=== PATIENT | female | born 1980 | race Caucasian/White ===

== ENCOUNTER 2016-06-14 07:46 | Inpatient (IN) | payer OTHER ==
[~2016-06-14 07:46] MED LIST: Lidocaine 1%/Sod Bicarbonate in NS 8.4% 1 ML Syringe IV PRN; Midazolam 1 MG/ML 2 ML SDV ONE; Propofol 200 MG/20 ML SDV ONE; Rocuronium 50 MG/5 ML Vial ONE; Sodium Chloride 0.9% 10 ML Syringe FLUSH PRN; ceFAZolin 1 GM Vial ONE; fentaNYL 250 MCG/5 ML SDV ONE
[2016-06-14] MEDS: Lactated Ringers 1,000 ML IV SCH ×2 (08:15→15:05)
--- NOTE | 2016-06-14 09:15 | PCM.PREANE ---
Preanesthetic Assessment - Anesthesia/Transfusion/Family Hx Anesthesia History: No Prior Anesthesia Family History of Anesthesia Reaction: No - Review of Systems General: No Symptoms Pulmonary: No Symptoms Cardiovascular: No Symptoms Gastrointestinal: No symptoms Neurological: No Symptoms Other: Reports: None - Physical Assessment NPO Status Date: 06/13/16 NPO Status Time: 19:00 O2 Sat by Pulse Oximetry: 98 Respiratory Rate: 16 Vital Signs: Last Vital Signs Temp 36.8 C 06/14/16 07:55 Pulse 91 06/14/16 07:55 Resp 16 06/14/16 07:55 BP 125/79 06/14/16 07:55 Pulse Ox 98 06/14/16 07:55 Height: 1.64 m Weight: 81.919 kg ASA Class: 2 Mental Status: Alert & Oriented x3 Airway Class: Mallampati = 1 Dentition: Reports: Normal Dentition Thyro-Mental Finger Breadths: 3 Mouth Opening Finger Breadths: 3 ROM/Head Extension: Full Lungs: Clear to auscultation, Normal respiratory effort Cardiovascular: Regular Rate, Regular Rhythm - Lab Values: Laboratory Last Values WBC 5.68 K/mm3 (3.98-10.04) 06/14/16 08:14 RBC 4.89 M/mm3 (3.98-5.22) 06/14/16 08:14 Hgb 13.8 gm/L (11.2-15.7) 06/14/16 08:14 Hct 40.0 % (34.1-44.9) 06/14/16 08:14 MCV 81.8 fl (79.4-94.8) 06/14/16 08:14 MCH 28.2 pg (25.6-32.2) 06/14/16 08:14 MCHC 34.5 g/dl (32.2-35.5) 06/14/16 08:14 RDW Std Deviation 38.6 fL (36.4-46.3) 06/14/16 08:14 Plt Count 265 K/mm3 (182-369) 06/14/16 08:14 MPV 9.6 fl (9.4-12.3) 06/14/16 08:14 Neut % (Auto) 59.2 % (34.0-71.1) 06/14/16 08:14 Lymph % (Auto) 31.9 % (19.3-51.7) 06/14/16 08:14 [facility] % (Auto) 6.3 % (4.7-12.5) 06/14/16 08:14 Eos % (Auto) 1.9 (0.7-5.8) 06/14/16 08:14 Baso % (Auto) 0.5 % (0.1-1.2) 06/14/16 08:14 Neut # 3.36 K/mm3 (1.56-6.13) 06/14/16 08:14 Lymph # 1.81 K/mm3 (1.18-3.74) 06/14/16 08:14 [facility] # 0.36 K/mm3 (0.24-0.36) 06/14/16 08:14 Eos # 0.11 K/mm3 (0.04-0.36) 06/14/16 08:14 Baso # 0.03 K/mm3 (0.01-0.08) 06/14/16 08:14 Sodium 139 mEq/L (136-145) 06/14/16 08:14 Potassium 4.0 mEq/L (3.5-5.1) 06/14/16 08:14 Chloride 104 mEq/L (98-107) 06/14/16 08:14 Carbon Dioxide 24 mEq/L (21-32) 06/14/16 08:14 Anion Gap 15.0 (5-15) 06/14/16 08:14 BUN 15 mg/dL (7-18) 06/14/16 08:14 Creatinine 0.9 mg/dL (0.55-1.02) 06/14/16 08:14 Est Cr Clr Drug Dosing 76.19 mL/min 06/14/16 08:14 Estimated GFR (MDRD) > 60 mL/min (>60) 06/14/16 08:14 BUN/Creatinine Ratio 16.7 (14-18) 06/14/16 08:14 Glucose 99 mg/dL (74-106) 06/14/16 08:14 Calcium 9.3 mg/dL (8.5-10.1) 06/14/16 08:14 Urine HCG, Qual Negative (NEGATIVE) 06/14/16 08:37 - Allergies Allergies/Adverse Reactions: Allergies Allergy/AdvReac Type Severity Reaction Status Date / Time No Known Allergies Allergy Verified 06/14/16 08:25 - Anesthesia Plan Pre-Op Medication Ordered: None - Acknowledgements Anesthesia Type Planned: General Anesthesia Pt an Appropriate Candidate for the Planned Anesthesia: Yes Alternatives and Risks of Anesthesia Discussed w Pt/Guardian: Yes Pt/Guardian Understands and Agrees with Anesthesia Plan: Yes PreAnesthesia Questionnaire HEENT History: Reports: None Cardiovascular History: Reports: None Respiratory History: Reports: None Gastrointestinal History: Reports: None, Other (see below) Other Gastrointestinal History: umbilical hernia Genitourinary History: Reports: None 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: Reports: , Other (see below) Other OB/BYN History: heavy menstrual bleeding, dysmenorrhea Musculoskeletal History: Reports: None Neurological History: Reports: None Psychiatric History: Reports: None (pt has hx of anxiety, panic attacks) Endocrine/Metabolic History: Reports: None Hematologic History: Reports: None Immunologic History: Reports: None Oncologic (Cancer) History: Reports: None Dermatologic History: Reports: None - Infectious Disease History Infectious Disease History: Reports: None - Past Surgical History Head Surgeries/Procedures: Reports: None HEENT Surgical History: Reports: Adenoidectomy, LASIK, Tonsillectomy Cardiovascular Surgical History: Reports: None Respiratory Surgical History: Reports: None GI Surgical History: Reports: Cholecystectomy Female Surgical History: Reports: section, Tubal ligation Male Surgical History: Reports: None Endocrine Surgical History: Reports: None Neurological Surgical History: Reports: None Musculoskeletal Surgical History: Reports: None, Other (see below) Other Musculoskeletal Surgeries/Procedures:: ankle fracture with surgery x 2 Oncologic Surgical History: Reports: None Dermatological Surgical History: Reports: None (no previous anesthetic comp) - SUBSTANCE USE Smoking Status *Q: Current Every Day Smoker (1/2 ppd x 15 years) - HOME MEDS Home Medications: Home Meds Chrom Bee/Brindal Gracia [Garcinia Cambogia Tablet] 2 tab PO DAILY 06/13/16 [ History] FLUoxetine [PROzac] 40 mg PO DAILY 06/13/16 [History] Fish Oil/[place]-3 Fatty Acids [Fish Oil 1,000 MG] 1,000 mg PO DAILY 06/13/16 [ History] Fluticasone Propionate [Flonase] 1 spray NASBOTH BID PRN 06/13/16 [History] Zolpidem [Ambien] 10 mg PO BEDTIME PRN 06/13/16 [History] - CURRENT (IN HOUSE) MEDS Current Meds: Current Medications Lactated Ringer's (Ringers, Lactated) 1,000 mls @ 125 mls/hr IV ASDIRECTED PAOLO Stop: 06/14/16 23:00 Last Admin: 06/14/16 08:15 Dose: 125 mls/hr Lidocaine/Sodium Bicarbonate (Buffered Lidocaine 1% In Ns 8.4%) 0.25 ml IV ONETIME PRN PRN Reason: Prior to IV Start Stop: 06/14/16 23:00 Sodium Chloride (Saline Flush) 10 ml FLUSH ASDIRECTED PRN PRN Reason: Keep Vein Open Stop: 06/14/16 23:59 Discontinued Medications Cefazolin Sodium (Ancef) Confirm Administered Dose 1 gm .ROUTE .STK-MED ONE Stop: 06/14/16 07:20 Cefazolin Sodium (Ancef) Confirm Administered Dose 1 gm .ROUTE .STK-MED ONE Stop: 06/14/16 07:20 Fentanyl (Sublimaze) Confirm Administered Dose 250 mcg .ROUTE .STK-MED ONE Stop: 06/14/16 07:17 Lidocaine/Epinephrine (Xylocaine 1% With Epinephrine 1:100,000) Confirm Administered Dose 20 ml .ROUTE .STK-MED ONE Stop: 06/14/16 08:14 Midazolam HCl (Versed 1 Mg/Ml) Confirm Administered Dose 2 mg .ROUTE .STK-MED ONE Stop: 06/14/16 07:18 Propofol (Diprivan 20 Ml) Confirm Administered Dose 200 mg .ROUTE .STK-MED ONE Stop: 06/14/16 07:15 Rocuronium [place] (Zemuron) Confirm Administered Dose 50 mg .ROUTE .STK-MED ONE Stop: 06/14/16 07:19 Sodium Chloride (Normal Saline) Confirm Administered Dose 50 ml .ROUTE .STK-MED ONE Stop: 06/14/16 08:14 Preanesthetic Assessment - PHYSICAL ASSESSMENT O2 Sat by Pulse Oximetry: 98 RR: 16 Vital Signs: Last Vital Signs Temp 36.8 C 06/14/16 07:55 Pulse 91 06/14/16 07:55 Resp 16 06/14/16 07:55 BP 125/79 06/14/16 07:55 Pulse Ox 98 06/14/16 07:55 Height: 1.64 m Weight: 81.919 kg NPO Status Date: 06/13/16 NPO Status Time: 19:00 - LAB Values: Laboratory Last Values WBC 5.68 K/mm3 (3.98-10.04) 06/14/16 08:14 RBC 4.89 M/mm3 (3.98-5.22) 06/14/16 08:14 Hgb 13.8 gm/L (11.2-15.7) 06/14/16 08:14 Hct 40.0 % (34.1-44.9) 06/14/16 08:14 MCV 81.8 fl (79.4-94.8) 06/14/16 08:14 MCH 28.2 pg (25.6-32.2) 06/14/16 08:14 MCHC 34.5 g/dl (32.2-35.5) 06/14/16 08:14 RDW Std Deviation 38.6 fL (36.4-46.3) 06/14/16 08:14 Plt Count 265 K/mm3 (182-369) 06/14/16 08:14 MPV 9.6 fl (9.4-12.3) 06/14/16 08:14 Neut % (Auto) 59.2 % (34.0-71.1) 06/14/16 08:14 Lymph % (Auto) 31.9 % (19.3-51.7) 06/14/16 08:14 [facility] % (Auto) 6.3 % (4.7-12.5) 06/14/16 08:14 Eos % (Auto) 1.9 (0.7-5.8) 06/14/16 08:14 Baso % (Auto) 0.5 % (0.1-1.2) 06/14/16 08:14 Neut # 3.36 K/mm3 (1.56-6.13) 06/14/16 08:14 Lymph # 1.81 K/mm3 (1.18-3.74) 06/14/16 08:14 [facility] # 0.36 K/mm3 (0.24-0.36) 06/14/16 08:14 Eos # 0.11 K/mm3 (0.04-0.36) 06/14/16 08:14 Baso # 0.03 K/mm3 (0.01-0.08) 06/14/16 08:14 Sodium 139 mEq/L (136-145) 06/14/16 08:14 Potassium 4.0 mEq/L (3.5-5.1) 06/14/16 08:14 Chloride 104 mEq/L (98-107) 06/14/16 08:14 Carbon Dioxide 24 mEq/L (21-32) 06/14/16 08:14 Anion Gap 15.0 (5-15) 06/14/16 08:14 BUN 15 mg/dL (7-18) 06/14/16 08:14 Creatinine 0.9 mg/dL (0.55-1.02) 06/14/16 08:14 Est Cr Clr Drug Dosing 76.19 mL/min 06/14/16 08:14 Estimated GFR (MDRD) > 60 mL/min (>60) 06/14/16 08:14 BUN/Creatinine Ratio 16.7 (14-18) 06/14/16 08:14 Glucose 99 mg/dL (74-106) 06/14/16 08:14 Calcium 9.3 mg/dL (8.5-10.1) 06/14/16 08:14 Urine HCG, Qual Negative (NEGATIVE) 06/14/16 08:37 - ALLERGIES Allergies/Adverse Reactions: Allergies Allergy/AdvReac Type Severity Reaction Status Date / Time No Known Allergies Allergy Verified 06/14/16 08:25
[2016-06-14] MEDS: Lidocaine 1% with EPINEPHrine 1:100,000 20 ML MDV ONE ×2 (09:55→10:19)
[2016-06-14] MEDS: Sodium Chloride 0.9% 50 ML SDV ONE ×2 (09:55→10:20)
[2016-06-14] MEDS ORDERED: diphenhydrAMINE 50 MG/ML SDV IVPUSH PRN (10:22)
[2016-06-14] MEDS ORDERED: Ondansetron 4 MG/2 ML SDV IVPUSH PRN ×2 (10:22→16:05)
[2016-06-14] MEDS ORDERED: Rocuronium 50 MG/5 ML Vial ONE (10:42)
[2016-06-14] MEDS ORDERED: Lactated Ringers 1,000 ML ONE ×3 (10:43→13:14)
[2016-06-14] MEDS ORDERED: Ketorolac 30 MG/ML SDV ONE (10:48)
[2016-06-14] MEDS ORDERED: Ondansetron 4 MG/2 ML SDV ONE (10:48)
[2016-06-14] MEDS ORDERED: HYDROmorphone 0.5 MG/0.5 ML Syringe IVPUSH PRN (10:50)
[2016-06-14] MEDS ORDERED: HYDROmorphone 1 MG/ML Syringe ONE (11:04)
[2016-06-14] MEDS ORDERED: Meperidine PF 50 MG/ML Syringe IVPUSH PRN (11:50)
[2016-06-14] MEDS ORDERED: fentaNYL 250 MCG/5 ML SDV ONE ×2 (12:15→13:32)
[2016-06-14] MEDS ORDERED: ePHEDrine/Normal Saline 25 MG/5 ML Syringe ONE ×2 (12:21→13:40)
[2016-06-14] MEDS ORDERED: Hetastarch in NS 500 ML ONE (12:33)
[2016-06-14] MEDS ORDERED: ceFAZolin 1 GM Vial ONE ×2 (14:17)
--- NOTE | 2016-06-14 14:36 | PCM.OPNOTE ---
- General Post-Op/Procedure Note Date of Surgery/Procedure: 06/14/16 Operative Procedure(s): Total laparoscopic hysterectomy. Exploratory laparotomy , salpingectomy. Cystoscopy Findings: Intra-abdominal findings of normal appearance of the uterus and ovaries. Fallopian tubes with evidence of prior tubal ligation. Moderate amount of adhesive disease between the bladder and the lower uterine segment. Pre Op Diagnosis: Menorrhagia Post-Op Diagnosis: Same Anesthesia Technique: General ET tube Primary Surgeon: Agnes Starr Secondary Surgeon: Itzel Greene Anesthesia Provider: Miley Rueda Fuel Pilot Engineer: Vance Shabazz Pathology: Cervix, uterus, and fallopian tubes to pathology Fluid Replacement, Intraop: 3,000 (LR, 500 Hespan, 2U PRBC) Output, Urine Amount: 375 EBL in mLs: 950 Complications: Bleeding from right sided branch of uterine artery requiring conversion to open procedure and transfusion fo 2 units PRBC's in the OR Condition: Good Free Text/Narrative:: The risks, benefits, indications, potential complications, and alternatives were explained to the patient and informed consent obtained. The patient was taken to the Operating Room where general anesthesia was induced without complication. The patient was placed in dorsal lithotomy with Giorgi Stirrups. The patient was then prepped and draped in the usual sterile fashion. A sterile bivalve speculum was placed into the vagina and the anterior lip of the cervix was grasped with a single tooth tenaculum and a V-care uterine manipulator was placed to allow uterine manipulation throughout the procedure. The speculum and single tooth tenaculum were removed from the vagina. A Richards catheter was placed in sterile fashion. Attention was then turned to the patients abdomen where a 5 mm skin incision was made in a vertical fashion in the umbilical fold. Next, a Veress needle was carefully introduced into the peritoneal cavity while tenting the abdominal wall. Intraperitoneal placement was confirmed by free flow of saline into the abdomen from a syringe open to gravity and with a low intraabdominal pressure with insufflation of C02 gas on low flow. The gas was increased to high flow and a pneumoperitoneum was obtained with C02 gas to a pressure of 15 mm Hg. Next, the 5 mm clear view trocar was inserted into the abdomen with the aid of the 5 mm laparoscope. 5 mm skin incisions were made in both the left and right lower quadrants approximately 10 cm lateral and 3 cm inferior to the umbilicus. 5 mm blunt trocars were inserted into the abdomen under direct visualization with care to avoid the abdominal wall vasculature. A blunt probe and grasper were inserted through the accessory ports and a survey of the abdomen revealed the findings detailed above. The right fallopian tube was elevated with the blunt graspers at the fimbriated end. The Ligasure was used to grasp, elevate, cauterize and transect the right fallopian tube from the site of previous tubal ligation toward the uterus to the level of the round ligament. The round ligament on the right was then elevated, cauterized, and transected with the Ligasure. Next, a bladder flap was carefully created with the aid of the the Ligasure and also with gentle blunt dissection. The right uterine artery was then skeletonized with the aid of the Ligasure and finally cauterized and transected. Hemostasis was noted. The exact same procedure was carried out on the left. Hemostasis was noted. Cautery was then used to cut on the vagina anteriorly and posteriorly to the cervical cap and the remainder of the cervix was resected.At this point slightly brisk bleeding noted from a cervical branch of the right uterine artery. This was cauterized and thought to be controlled. Decision made to close the cuff to further control bleeding. The uterus, bilateral tubes, and cervix were then removed through the vagina. The pneumoperitoneum was allowed to release and the CO2 gas turned off. Attention was then turned to closing the vaginal cuff. This was done vaginally.One suture of 0 vicryl was used to close the vaginal cuff with a running, locking stitch. Hemostasis was excellent.~ Attention was then again turned to the abdomen. All members of the surgical team changed gloves. The laparoscope was again inserted and the abdomen was again insufflated with CO2. At this time it was noted there was very brisk bleeding from the right side of the vaginal cuff. A vessel lumen was noted to be open and bleeding. An attempt was made to clip this vessel, but was unsuccessful due to rapid bleeding and difficult visualization. An additional 5 mm suprapubic port was placed to aid in irritation/suction and another attempt made to clip this vessel, but was unsuccessful. At this time EBL was now thought to be ~750 cc by anesthesia estimate. Decision made to call for 2 units PRBCs and perform laparotomy. Insufflation turned off and all trocars removed from the abdomen. A pfannensteil incision was made in line with previous suprapubic port site and carried down to the level of the fascia. The fascia was then incised laterally. Peritoneum was identified and entered. An nimisha retractor was placed into the incision. Irrigation/suction performed and site of bleeding vessel able to be grasped with an allis clamp. This area was then controlled with a running, locking 0 vicryl. Hemostasis noted. The patient was given methylene blue. The catheter was then removed and cystoscopy was preformed. The entire bladder was surveyed and there were no stitches or injury noted. Efflux was noted from both ureteral orifices. The scope was then removed and Richards replaced in sterile fashion. Attention was then again turned to the abdomen. Slight oozing noted from vaginal cuff and so this was over sewn with an additional running, 0 vicryl suture. Sterile water placed into the abdomen. No bleeding noted from pedicles or vaginal cuff. Andrés seal placed over the vaginal cuff and pedicles. Ligasure then used to remove the distal portions/fimbriated ends of the fallopian tubes. Hemostasis noted. Nimisha retractor removed. All skin incisions were re-approximated with 4-0 Monocryl. The laparoscopic incisions were sealed with Dermabond. The pfannensteil incision was covered with steri- strips and a tegaderm dressing. All sponge, lap, needle, and instrument counts were correct x 2. The patient tolerated the procedure well and there were no complications.
--- NOTE | 2016-06-14 14:46 | PCM.POSTAN ---
POST ANESTHESIA ASSESSMENT - MENTAL STATUS Mental Status: alert, oriented - VITAL SIGNS Pulse Rate: 110 SaO2: 95 Resp Rate: 14 Blood Pressure: 124/67 Temperature: 97.9 C - RESPIRATORY Respiratory Status: respiratory rate WNL, airway patent, O2 saturation stable - CARDIOVASCULAR CV Status: pulse rate WNL, blood pressure stable - GASTROINTESTINAL GI Status: no symptoms - PAIN Free Text/Narrative:: pt states she feels crampy - POST OP HYDRATION Hydration Status: adequate & stable
[2016-06-14] MEDS: fentaNYL 100 MCG/2 ML SDV ONE ×2 (14:50→16:49)
[2016-06-14] MEDS: fentaNYL 100 MCG/2 ML SDV IVPUSH PRN ×2 (14:50→15:36)
[2016-06-14] MEDS ORDERED: HYDROmorphone 0.5 MG/0.5 ML Syringe ONE (15:17)
[2016-06-14] MEDS ORDERED: fentaNYL 100 MCG/2 ML SDV IVPUSH SCH (15:30)
[2016-06-14] MEDS ORDERED: HYDROmorphone 0.5 MG/0.5 ML Syringe IM ONE (15:32)
--- NOTE | 2016-06-14 15:50 | PCM48HPAN ---
Post Anesthesia Note - EVALUATION WITHIN 48HRS OF ANESTHETIC Vital Signs in Normal Range: Yes Patient Participated in Evaluation: Yes Respiratory Function Stable: Yes Airway Patent: Yes Cardiovascular Function Stable: Yes Hydration Status Stable: Yes Pain Control Satisfactory: Yes (rates a 4 ) Nausea and Vomiting Control Satisfactory: Yes Mental Status Recovered: Yes
[2016-06-14] MEDS: Sodium Chloride 0.9% 1,000 ML IV SCH (16:59)
[2016-06-14] MEDS: Morphine 2 MG/ML Syringe IVPUSH PRN ×3 (16:59→23:46)
[2016-06-14] MEDS ORDERED: Ketorolac 30 MG/ML SDV IVPUSH ONE (18:17)
[2016-06-14] MEDS: Docusate Sodium 100 MG Cap PO SCH (20:18)
--- NOTE | 2016-06-14 21:07 | PCM.SN ---
- Free Text/Narrative Note: 1829 S: Patient with some abdominal cramping that hasn't been well controlled by morphine. Feeling slightly dizzy. O :Gen: A&C Ab: Soft, non distended, appropriately tender Labs: 1740 CBC 9.8 down from 11.6 in PACU A/P: POD#0 from [facility] with conversion to ex lap due to bleeding from right sided vessel Dose of Toradol now Repeat CBC at midnight UOP q 2 hours Repeat abdominal examinations as necessary Agnes Starr
[2016-06-15] MEDS ORDERED: Ketorolac 30 MG/ML SDV IM PRN (00:15)
[2016-06-15] MEDS: Morphine 2 MG/ML Syringe IVPUSH PRN (02:25)
[2016-06-15] MEDS: Sodium Chloride 0.9% 1,000 ML IV SCH (04:14)
--- NOTE | 2016-06-15 06:49 | PCM.SURGPN ---
- General Info Date of Service: 06/15/16 POD#: 1 Functional Status: Reports: tolerating diet, ambulating - Review of Systems General: Reports: No Symptoms Pulmonary: Reports: no symptoms Cardiovascular: Reports: No Symptoms Gastrointestinal: Reports: Abdominal pain Genitourinary: Reports: no symptoms Musculoskeletal: Reports: no symptoms - Patient Data Vitals - most recent: Last Vital Signs Temp 37.3 C 06/15/16 04:00 Pulse 97 06/15/16 06:00 Resp 28 H 06/15/16 04:00 BP 102/54 L 06/15/16 06:00 Pulse Ox 94 L 06/15/16 04:00 Weight - most recent: 86.001 kg I&O - last 24 hours: Intake & Output 06/14/16 06/14/16 06/15/16 14:59 22:59 06:59 Intake Total 3000 770 Output Total 750 760 900 Balance 2250 10 -900 Lab Results last 24 hrs: Laboratory Results - last 24 hr 06/14/16 06/14/16 06/14/16 Range/Units 08:14 08:14 08:14 WBC 5.68 (3.98-10.04) K/mm3 RBC 4.89 (3.98-5.22) M/mm3 Hgb 13.8 (11.2-15.7) gm/L Hct 40.0 (34.1-44.9) % MCV 81.8 (79.4-94.8) fl MCH 28.2 (25.6-32.2) pg MCHC 34.5 (32.2-35.5) g/dl RDW Std Deviation 38.6 (36.4-46.3) fL Plt Count 265 (182-369) K/mm3 MPV 9.6 (9.4-12.3) fl Neut % (Auto) 59.2 (34.0-71.1) % Lymph % (Auto) 31.9 (19.3-51.7) % Dawes % (Auto) 6.3 (4.7-12.5) % Eos % (Auto) 1.9 (0.7-5.8) Baso % (Auto) 0.5 (0.1-1.2) % Neut # 3.36 (1.56-6.13) K/mm3 Lymph # 1.81 (1.18-3.74) K/mm3 Neut # (Auto) (1.56-6.13) K/mm3 Dawes # 0.36 (0.24-0.36) K/mm3 Lymph # (Auto) (1.18-3.74) K/mm3 Dawes # (Auto) (0.24-0.36) K/mm3 Eos # 0.11 (0.04-0.36) K/mm3 Baso # 0.03 (0.01-0.08) K/mm3 Eos # (Auto) (0.04-0.36) K/mm3 Baso # (Auto) (0.01-0.08) K/mm3 Neutrophils % (Manual) (40-60) % Band Neutrophils % (0-10) % Lymphocytes % (Manual) (20-40) % Atypical Lymphs % % Monocytes % (Manual) (2-10) % Eosinophils % (Manual) (0.7-5.8) % Basophils % (Manual) (0.1-1.2) Manual Slide Review Platelet Estimate Poikilocytosis Microcytosis Spherocytes Ovalocytes RBC Morph Comment PT (8.0-13.0) SECONDS INR APTT (22-36) SECONDS Sodium 139 (136-145) mEq/L Potassium 4.0 (3.5-5.1) mEq/L Chloride 104 (98-107) mEq/L Carbon Dioxide 24 (21-32) mEq/L Anion Gap 15.0 (5-15) BUN 15 (7-18) mg/dL Creatinine 0.9 (0.55-1.02) mg/dL Est Cr Clr Drug Dosing 76.19 mL/min Estimated GFR (MDRD) > 60 (>60) mL/min BUN/Creatinine Ratio 16.7 (14-18) Glucose 99 (74-106) mg/dL Calcium 9.3 (8.5-10.1) mg/dL Magnesium (1.8-2.4) mg/dl Urine HCG, Qual (NEGATIVE) Blood Type B POSITIVE Gel Antibody Screen Negative Crossmatch See Detail 06/14/16 06/14/16 06/14/16 Range/Units 08:37 14:00 15:05 WBC 10.38 H (3.98-10.04) K/mm3 RBC 2.56 L (3.98-5.22) M/mm3 Hgb 7.3 L* (11.2-15.7) gm/L Hct 22.3 L (34.1-44.9) % MCV 87.1 (79.4-94.8) fl MCH 28.5 (25.6-32.2) pg MCHC 32.7 (32.2-35.5) g/dl RDW Std Deviation 42.4 (36.4-46.3) fL Plt Count 143 L (182-369) K/mm3 MPV 9.7 (9.4-12.3) fl Neut % (Auto) (34.0-71.1) % Lymph % (Auto) (19.3-51.7) % Dawes % (Auto) (4.7-12.5) % Eos % (Auto) (0.7-5.8) Baso % (Auto) (0.1-1.2) % Neut # (1.56-6.13) K/mm3 Lymph # (1.18-3.74) K/mm3 Neut # (Auto) (1.56-6.13) K/mm3 Dawes # (0.24-0.36) K/mm3 Lymph # (Auto) (1.18-3.74) K/mm3 Dawes # (Auto) (0.24-0.36) K/mm3 Eos # (0.04-0.36) K/mm3 Baso # (0.01-0.08) K/mm3 Eos # (Auto) (0.04-0.36) K/mm3 Baso # (Auto) (0.01-0.08) K/mm3 Neutrophils % (Manual) 88 H (40-60) % Band Neutrophils % 6 (0-10) % Lymphocytes % (Manual) 6 L (20-40) % Atypical Lymphs % 0 % Monocytes % (Manual) 0 L (2-10) % Eosinophils % (Manual) 0 L (0.7-5.8) % Basophils % (Manual) 0 L (0.1-1.2) Manual Slide Review Platelet Estimate Adequate Poikilocytosis 1+ slight Microcytosis 2+ moderate Spherocytes 1+ slight Ovalocytes 1+ slight RBC Morph Comment Not Reportable PT (8.0-13.0) SECONDS INR APTT 26 (22-36) SECONDS Sodium (136-145) mEq/L Potassium (3.5-5.1) mEq/L Chloride (98-107) mEq/L Carbon Dioxide (21-32) mEq/L Anion Gap (5-15) BUN (7-18) mg/dL Creatinine (0.55-1.02) mg/dL Est Cr Clr Drug Dosing mL/min Estimated GFR (MDRD) (>60) mL/min BUN/Creatinine Ratio (14-18) Glucose (74-106) mg/dL Calcium (8.5-10.1) mg/dL Magnesium (1.8-2.4) mg/dl Urine HCG, Qual Negative (NEGATIVE) Blood Type Gel Antibody Screen Crossmatch 06/14/16 06/14/16 06/14/16 Range/Units 15:05 15:05 17:40 WBC 20.65 H 11.77 H (3.98-10.04) K/mm3 RBC 4.04 3.44 L (3.98-5.22) M/mm3 Hgb 11.6 9.8 L (11.2-15.7) gm/L Hct 34.6 29.4 L (34.1-44.9) % MCV 85.6 85.5 (79.4-94.8) fl MCH 28.7 28.5 (25.6-32.2) pg MCHC 33.5 33.3 (32.2-35.5) g/dl RDW Std Deviation 43.7 43.0 (36.4-46.3) fL Plt Count 249 174 L (182-369) K/mm3 MPV 9.6 9.2 L (9.4-12.3) fl Neut % (Auto) 86.3 H (34.0-71.1) % Lymph % (Auto) 9.6 L (19.3-51.7) % Dawes % (Auto) 3.9 L (4.7-12.5) % Eos % (Auto) 0 L (0.7-5.8) Baso % (Auto) 0.1 (0.1-1.2) % Neut # (1.56-6.13) K/mm3 Lymph # (1.18-3.74) K/mm3 Neut # (Auto) 17.80 H (1.56-6.13) K/mm3 Dawes # (0.24-0.36) K/mm3 Lymph # (Auto) 1.98 (1.18-3.74) K/mm3 Dawes # (Auto) 0.80 H (0.24-0.36) K/mm3 Eos # (0.04-0.36) K/mm3 Baso # (0.01-0.08) K/mm3 Eos # (Auto) 0.01 L (0.04-0.36) K/mm3 Baso # (Auto) 0.03 (0.01-0.08) K/mm3 Neutrophils % (Manual) (40-60) % Band Neutrophils % (0-10) % Lymphocytes % (Manual) (20-40) % Atypical Lymphs % % Monocytes % (Manual) (2-10) % Eosinophils % (Manual) (0.7-5.8) % Basophils % (Manual) (0.1-1.2) Manual Slide Review Abnormal smear Platelet Estimate Poikilocytosis Microcytosis Spherocytes Ovalocytes RBC Morph Comment PT 11.6 (8.0-13.0) SECONDS INR 1.06 APTT (22-36) SECONDS Sodium (136-145) mEq/L Potassium (3.5-5.1) mEq/L Chloride (98-107) mEq/L Carbon Dioxide (21-32) mEq/L Anion Gap (5-15) BUN (7-18) mg/dL Creatinine (0.55-1.02) mg/dL Est Cr Clr Drug Dosing mL/min Estimated GFR (MDRD) (>60) mL/min BUN/Creatinine Ratio (14-18) Glucose (74-106) mg/dL Calcium (8.5-10.1) mg/dL Magnesium (1.8-2.4) mg/dl Urine HCG, Qual (NEGATIVE) Blood Type Gel Antibody Screen Crossmatch 06/14/16 06/14/16 06/15/16 Range/Units 22:00 22:00 05:04 WBC 9.95 7.21 (3.98-10.04) K/mm3 RBC 3.35 L 3.21 L (3.98-5.22) M/mm3 Hgb 9.7 L 9.1 L (11.2-15.7) gm/L Hct 28.5 L 27.4 L (34.1-44.9) % MCV 85.1 85.4 (79.4-94.8) fl MCH 29.0 28.3 (25.6-32.2) pg MCHC 34.0 33.2 (32.2-35.5) g/dl RDW Std Deviation 43.4 43.3 (36.4-46.3) fL Plt Count 175 L 158 L (182-369) K/mm3 MPV 9.4 9.6 (9.4-12.3) fl Neut % (Auto) (34.0-71.1) % Lymph % (Auto) (19.3-51.7) % Dawes % (Auto) (4.7-12.5) % Eos % (Auto) (0.7-5.8) Baso % (Auto) (0.1-1.2) % Neut # (1.56-6.13) K/mm3 Lymph # (1.18-3.74) K/mm3 Neut # (Auto) (1.56-6.13) K/mm3 Dawes # (0.24-0.36) K/mm3 Lymph # (Auto) (1.18-3.74) K/mm3 Dawes # (Auto) (0.24-0.36) K/mm3 Eos # (0.04-0.36) K/mm3 Baso # (0.01-0.08) K/mm3 Eos # (Auto) (0.04-0.36) K/mm3 Baso # (Auto) (0.01-0.08) K/mm3 Neutrophils % (Manual) (40-60) % Band Neutrophils % (0-10) % Lymphocytes % (Manual) (20-40) % Atypical Lymphs % % Monocytes % (Manual) (2-10) % Eosinophils % (Manual) (0.7-5.8) % Basophils % (Manual) (0.1-1.2) Manual Slide Review Platelet Estimate Poikilocytosis Microcytosis Spherocytes Ovalocytes RBC Morph Comment PT (8.0-13.0) SECONDS INR APTT (22-36) SECONDS Sodium 136 (136-145) mEq/L Potassium 4.2 (3.5-5.1) mEq/L Chloride 106 (98-107) mEq/L Carbon Dioxide 22 (21-32) mEq/L Anion Gap 12.2 (5-15) BUN 9 (7-18) mg/dL Creatinine 0.7 (0.55-1.02) mg/dL Est Cr Clr Drug Dosing 97.96 mL/min Estimated GFR (MDRD) > 60 (>60) mL/min BUN/Creatinine Ratio 12.9 L (14-18) Glucose 110 H (74-106) mg/dL Calcium 6.8 L (8.5-10.1) mg/dL Magnesium 1.4 L (1.8-2.4) mg/dl Urine HCG, Qual (NEGATIVE) Blood Type Gel Antibody Screen Crossmatch 06/15/16 Range/Units 05:04 WBC (3.98-10.04) K/mm3 RBC (3.98-5.22) M/mm3 Hgb (11.2-15.7) gm/L Hct (34.1-44.9) % MCV (79.4-94.8) fl MCH (25.6-32.2) pg MCHC (32.2-35.5) g/dl RDW Std Deviation (36.4-46.3) fL Plt Count (182-369) K/mm3 MPV (9.4-12.3) fl Neut % (Auto) (34.0-71.1) % Lymph % (Auto) (19.3-51.7) % Dawes % (Auto) (4.7-12.5) % Eos % (Auto) (0.7-5.8) Baso % (Auto) (0.1-1.2) % Neut # (1.56-6.13) K/mm3 Lymph # (1.18-3.74) K/mm3 Neut # (Auto) (1.56-6.13) K/mm3 Dawes # (0.24-0.36) K/mm3 Lymph # (Auto) (1.18-3.74) K/mm3 Dawes # (Auto) (0.24-0.36) K/mm3 Eos # (0.04-0.36) K/mm3 Baso # (0.01-0.08) K/mm3 Eos # (Auto) (0.04-0.36) K/mm3 Baso # (Auto) (0.01-0.08) K/mm3 Neutrophils % (Manual) (40-60) % Band Neutrophils % (0-10) % Lymphocytes % (Manual) (20-40) % Atypical Lymphs % % Monocytes % (Manual) (2-10) % Eosinophils % (Manual) (0.7-5.8) % Basophils % (Manual) (0.1-1.2) Manual Slide Review Platelet Estimate Poikilocytosis Microcytosis Spherocytes Ovalocytes RBC Morph Comment PT (8.0-13.0) SECONDS INR APTT (22-36) SECONDS Sodium 139 (136-145) mEq/L Potassium 3.3 L (3.5-5.1) mEq/L Chloride 108 H (98-107) mEq/L Carbon Dioxide 26 (21-32) mEq/L Anion Gap 8.3 (5-15) BUN 7 (7-18) mg/dL Creatinine 0.7 (0.55-1.02) mg/dL Est Cr Clr Drug Dosing 97.96 mL/min Estimated GFR (MDRD) > 60 (>60) mL/min BUN/Creatinine Ratio 10.0 L (14-18) Glucose 92 (74-106) mg/dL Calcium 6.9 L (8.5-10.1) mg/dL Magnesium (1.8-2.4) mg/dl Urine HCG, Qual (NEGATIVE) Blood Type Gel Antibody Screen Crossmatch Med Orders - Current: Current Medications Docusate Sodium (Colace) 100 mg PO BID [facility] Last Admin: 06/14/16 20:18 Dose: 100 mg Fluoxetine HCl (Prozac) 40 mg PO DAILY [facility] Sodium Chloride (Normal Saline) 1,000 mls @ 100 mls/hr IV ASDIRECTED [facility] Last Admin: 06/15/16 04:14 Dose: 100 mls/hr Ketorolac Tromethamine (Toradol) 30 mg IM ONETIME PRN PRN Reason: Pain Last Admin: 06/15/16 04:11 Dose: 30 mg Meperidine HCl (Demerol) 12.5 mg IVPUSH ASDIRECTED PRN PRN Reason: Shivering Stop: 06/15/16 11:51 Last Admin: 06/14/16 14:59 Dose: 12.5 mg Morphine Sulfate (Morphine) 2 mg IVPUSH Q2H PRN PRN Reason: Pain (severe 7-10) Last Admin: 06/15/16 02:25 Dose: 2 mg Ondansetron HCl (Zofran) 4 mg IVPUSH Q4H PRN PRN Reason: Nausea/Vomiting Oxycodone/Acetaminophen (Percocet 325-5 Mg) 2 tab PO Q4H PRN PRN Reason: Pain (moderate 4-6) Discontinued Medications Cefazolin Sodium (Ancef) Confirm Administered Dose 1 gm .ROUTE .STK-MED ONE Stop: 06/14/16 07:20 Cefazolin Sodium (Ancef) Confirm Administered Dose 1 gm .ROUTE .STK-MED ONE Stop: 06/14/16 07:20 Cefazolin Sodium (Ancef) Confirm Administered Dose 1 gm .ROUTE .STK-MED ONE Stop: 06/14/16 14:18 Cefazolin Sodium (Ancef) Confirm Administered Dose 1 gm .ROUTE .STK-MED ONE Stop: 06/14/16 14:18 Diphenhydramine HCl (Benadryl) 25 mg IVPUSH Q6H PRN PRN Reason: pruritis Stop: 06/14/16 18:00 Ephedrine Sulfate (Ephedrine In Ns) Confirm Administered Dose 25 mg .ROUTE .STK- MED ONE Stop: 06/14/16 12:22 Ephedrine Sulfate (Ephedrine In Ns) Confirm Administered Dose 25 mg .ROUTE .STK- MED ONE Stop: 06/14/16 13:41 Fentanyl (Sublimaze) Confirm Administered Dose 250 mcg .ROUTE .STK-MED ONE Stop: 06/14/16 07:17 Fentanyl (Sublimaze) 50 mcg IVPUSH Q5M PRN PRN Reason: Pain Stop: 06/14/16 12:06 Last Admin: 06/14/16 14:50 Dose: 50 mcg Fentanyl (Sublimaze) Confirm Administered Dose 250 mcg .ROUTE .STK-MED ONE Stop: 06/14/16 12:16 Fentanyl (Sublimaze) Confirm Administered Dose 250 mcg .ROUTE .STK-MED ONE Stop: 06/14/16 13:33 Fentanyl (Sublimaze) Confirm Administered Dose 100 mcg .ROUTE .STK-MED ONE Stop: 06/14/16 14:47 Last Admin: 06/14/16 16:49 Dose: Not Given Fentanyl (Sublimaze) 50 mcg IVPUSH ONETIME [facility] Stop: 06/14/16 18:00 Hydromorphone HCl (Dilaudid) 0.5 mg IVPUSH Q15M PRN PRN Reason: severe pain Stop: 06/14/16 11:06 Hydromorphone HCl (Dilaudid) Confirm Administered Dose 1 mg .ROUTE .STK-MED ONE Stop: 06/14/16 11:05 Hydromorphone HCl (Dilaudid) Confirm Administered Dose 0.5 mg .ROUTE .STK-MED ONE Stop: 06/14/16 15:18 Last Admin: 06/14/16 15:26 Dose: 0.5 mg Hydromorphone HCl (Dilaudid) 0.5 mg IM ONETIME ONE Stop: 06/14/16 15:33 Last Admin: 06/14/16 16:49 Dose: Not Given Lactated Ringer's (Ringers, Lactated) 1,000 mls @ 125 mls/hr IV ASDIRECTED [facility] Stop: 06/14/16 23:00 Last Admin: 06/14/16 15:05 Dose: 125 mls/hr Lactated Ringer's (Ringers, Lactated) Confirm Administered Dose 1,000 mls @ as directed .ROUTE .ST-MED ONE Stop: 06/14/16 10:44 Hetastarch/Sodium Chloride (Hetastarch 6% In Normal Saline) Confirm Administered Dose 500 mls @ as directed .ROUTE .STK-MED ONE Stop: 06/14/16 12:34 Lactated Ringer's (Ringers, Lactated) Confirm Administered Dose 1,000 mls @ as directed .ROUTE .STK-MED ONE Stop: 06/14/16 12:35 Lactated Ringer's (Ringers, Lactated) Confirm Administered Dose 1,000 mls @ as directed .ROUTE .STK-MED ONE Stop: 06/14/16 13:15 Ketorolac Tromethamine (Toradol) Confirm Administered Dose 30 mg .ROUTE .STK- MED ONE Stop: 06/14/16 10:49 Ketorolac Tromethamine (Toradol) 30 mg IVPUSH ONETIME ONE Stop: 06/14/16 18:18 Last Admin: 06/14/16 18:26 Dose: 30 mg Lidocaine/Epinephrine (Xylocaine 1% With Epinephrine 1:100,000) Confirm Administered Dose 20 ml .ROUTE .STK-MED ONE Stop: 06/14/16 08:14 Last Admin: 06/14/16 09:55 Dose: 1 ml Lidocaine/Sodium Bicarbonate (Buffered Lidocaine 1% In Ns 8.4%) 0.25 ml IV ONETIME PRN PRN Reason: Prior to IV Start Stop: 06/14/16 23:00 Methylene Blue (Methylene Blue 1%) Confirm Administered Dose 2 ml .ROUTE .STK- MED ONE Stop: 06/14/16 12:30 Midazolam HCl (Versed 1 Mg/Ml) Confirm Administered Dose 2 mg .ROUTE .STK-MED ONE Stop: 06/14/16 07:18 Ondansetron HCl (Zofran) Confirm Administered Dose 4 mg .ROUTE .STK-MED ONE Stop: 06/14/16 10:49 Ondansetron HCl (Zofran) 4 mg IVPUSH ONETIME PRN PRN Reason: Nausea/Vomiting Stop: 06/14/16 18:00 Last Admin: 06/14/16 16:59 Dose: 4 mg Propofol (Diprivan 20 Ml) Confirm Administered Dose 200 mg .ROUTE .STK-MED ONE Stop: 06/14/16 07:15 Rocuronium Pollock (Zemuron) Confirm Administered Dose 50 mg .ROUTE .STK-MED ONE Stop: 06/14/16 07:19 Rocuronium Pollock (Zemuron) Confirm Administered Dose 50 mg .ROUTE .STK-MED ONE Stop: 06/14/16 10:43 Sodium Chloride (Saline Flush) 10 ml FLUSH ASDIRECTED PRN PRN Reason: Keep Vein Open Stop: 06/14/16 23:59 Sodium Chloride (Normal Saline) Confirm Administered Dose 50 ml .ROUTE .STK-MED ONE Stop: 06/14/16 08:14 Last Admin: 06/14/16 09:55 Dose: 3 ml - Exam Wound/Incisions: healing well, dressing dry and intact, no drainage General: alert, oriented, cooperative Lungs: Clear to auscultation, Normal respiratory effort Cardiovascular: Regular Rhythm, Tachycardia Abdomen: soft, tenderness. No: rebound, guarding Extremities: no edema Skin: warm, dry, intact - Problem List & Annotations (1) Menorrhagia SNOMED Code(s): 484693830 Code(s): N92.0 - EXCESSIVE AND FREQUENT MENSTRUATION WITH REGULAR CYCLE Status: Acute Current Visit: Yes (2) S/P hysterectomy SNOMED Code(s): 817271581, 855855408 Code(s): Z90.710 - ACQUIRED ABSENCE OF BOTH CERVIX AND UTERUS Status: Acute Current Visit: Yes (3) S/P exploratory laparotomy SNOMED Code(s): 876811177, 35585937, 056351598 Code(s): Z98.890 - OTHER SPECIFIED POSTPROCEDURAL STATES Status: Acute Current Visit: Yes (4) Postoperative anemia SNOMED Code(s): 145110847 Code(s): D64.9 - ANEMIA, UNSPECIFIED Status: Acute Current Visit: Yes - Problem List Review Problem List Initiated/Reviewed/Updated: Yes - My Orders Last 24 Hours: Active Orders 24 hr Category Date Time Status Patient Status [ADT] Routine ADT 06/14/16 16:05 Active Antiembolic Devices [RC] BID Care 06/14/16 16:07 Active Cooling Warming Measures [RC] ASDIRECTED Care 06/14/16 10:22 Active Intake and Output [RC] Q2HR Care 06/14/16 16:07 Active Notify Provider Intake and Out [RC] ASDIRECTED Care 06/14/16 16:08 Active Notify Provider Vital Signs [RC] ASDIRECTED Care 06/14/16 16:07 Active Notify Provider [RC] ASDIRECTED Care 06/14/16 10:22 Active Oxygen Therapy [RC] ASDIRECTED Care 06/14/16 10:22 Active Pulse Oximetry [RC] ASDIRECTED Care 06/14/16 10:22 Active Up With Assistance [RC] PER UNIT ROUTINE Care 06/14/16 16:06 Active Vital Signs [RC] Q1HR Care 06/14/16 10:22 Active Regular Diet [DIET] Diet 06/14/16 Dinner Active PATIENT RETYPE [BBK] Stat Lab 06/14/16 08:14 Results RED BLOOD CELLS LP [BBK] Stat Lab 06/14/16 08:14 Results TYPE AND SCREEN [BBK] Stat Lab 06/14/16 08:14 Results Acetaminophen/oxyCODONE [Percocet 325-5 MG] Med 06/14/16 16:05 Active 2 tab PO Q4H PRN Docusate Sodium [Colace] Med 06/14/16 21:00 Active 100 mg PO BID FLUoxetine [PROzac] Med 06/15/16 09:00 Active 40 mg PO DAILY Ketorolac [Toradol] Med 06/15/16 00:15 Active 30 mg IM ONETIME PRN Meperidine [Demerol] Med 06/14/16 11:50 Active 12.5 mg IVPUSH ASDIRECTED PRN Morphine Med 06/14/16 16:05 Active 2 mg IVPUSH Q2H PRN Ondansetron [Zofran] Med 06/14/16 16:05 Active 4 mg IVPUSH Q4H PRN Sodium Chloride 0.9% [Normal Saline] 1,000 ml Med 06/14/16 16:15 Active IV ASDIRECTED Sequential Compression Device [OM.PC] Per Unit Routine Oth 06/14/16 16:07 Ordered Resuscitation Status Routine Resus Stat 06/14/16 16:05 Ordered Medication Orders Docusate Sodium (Colace) 100 mg PO BID [facility] Last Admin: 06/14/16 20:18 Dose: 100 mg Fluoxetine HCl (Prozac) 40 mg PO DAILY [facility] Sodium Chloride (Normal Saline) 1,000 mls @ 100 mls/hr IV ASDIRECTED [facility] Last Admin: 06/15/16 04:14 Dose: 100 mls/hr Infusion: 06/15/16 02:59 Dose: 100 mls/hr Admin: 06/14/16 16:59 Dose: 100 mls/hr Ketorolac Tromethamine (Toradol) 30 mg IM ONETIME PRN PRN Reason: Pain Last Admin: 06/15/16 04:11 Dose: 30 mg Meperidine HCl (Demerol) 12.5 mg IVPUSH ASDIRECTED PRN PRN Reason: Shivering Stop: 06/15/16 11:51 Last Admin: 06/14/16 14:59 Dose: 12.5 mg Morphine Sulfate (Morphine) 2 mg IVPUSH Q2H PRN PRN Reason: Pain (severe 7-10) Last Admin: 06/15/16 02:25 Dose: 2 mg Admin: 06/14/16 23:46 Dose: 2 mg Admin: 06/14/16 20:44 Dose: 2 mg Admin: 06/14/16 16:59 Dose: 2 mg Ondansetron HCl (Zofran) 4 mg IVPUSH Q4H PRN PRN Reason: Nausea/Vomiting Oxycodone/Acetaminophen (Percocet 325-5 Mg) 2 tab PO Q4H PRN PRN Reason: Pain (moderate 4-6) - Assessment Assessment (Free Text/Narrative):: 35 y/o POD#1 from TLH with then conversion to ex lap due to bleeding from 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 - Plan Plan (Free Text/Narrative):: * D/c IVF * Richards to be removed * Hb this AM stable. Pending clinical course will either check tonight vs tomorrow * General diet * Toradol during day and then transition to ibuprofen tonight * Percocet for pain
[2016-06-15] MEDS ORDERED: Simethicone 80 MG Tab.Chew PO PRN (06:59)
[2016-06-15] MEDS: Acetaminophen/oxyCODONE 325-5 MG Tab PO PRN ×4 (07:06→21:02)
[2016-06-15] MEDS ORDERED: Pneumococcal Polyvalent-23 Vaccine 0.5 ML SDV IM ONE (08:45)
[2016-06-15] MEDS: FLUoxetine 20 MG Cap PO SCH (08:51)
[2016-06-15] MEDS: Docusate Sodium 100 MG Cap PO SCH ×2 (08:52→21:02)
--- NOTE | 2016-06-15 10:08 | PCM48HPAN ---
Post Anesthesia Note - EVALUATION WITHIN 48HRS OF ANESTHETIC Vital Signs in Normal Range: Yes Patient Participated in Evaluation: Yes Respiratory Function Stable: Yes Airway Patent: Yes Cardiovascular Function Stable: Yes (HR 93, BP 104/57, Hgb 9.1) Hydration Status Stable: Yes Pain Control Satisfactory: Yes Nausea and Vomiting Control Satisfactory: Yes Mental Status Recovered: Yes
[2016-06-15] MEDS: Ketorolac 30 MG/ML SDV IVPUSH SCH ×2 (10:57→16:23)
[2016-06-15] MEDS ORDERED: Ibuprofen 600 MG Tab PO PRN (17:56)
[2016-06-15] MEDS ORDERED: HYDROmorphone 0.5 MG/0.5 ML Syringe IVPUSH PRN (17:56)
[2016-06-16] MEDS: Acetaminophen/oxyCODONE 325-5 MG Tab PO PRN ×2 (02:21→08:55)
--- NOTE | 2016-06-16 06:52 | PCM.SURGPN ---
- General Info Date of Service: 06/16/16 POD#: 2 Functional Status: Reports: pain controlled, tolerating diet, ambulating, urinating - Review of Systems General: Reports: No Symptoms Pulmonary: Reports: no symptoms Cardiovascular: Reports: No Symptoms Gastrointestinal: Reports: Abdominal pain (managed with medications ), Flatus Genitourinary: Reports: no symptoms Musculoskeletal: Reports: no symptoms - Patient Data Vitals - most recent: Last Vital Signs Temp 36.7 C 06/16/16 04:00 Pulse 91 06/16/16 04:00 Resp 18 06/16/16 04:00 BP 101/53 L 06/16/16 04:00 Pulse Ox 90 L 06/16/16 04:00 Orthostatic Blood Pressure [ 108/67 Sitting] Weight - most recent: 86.001 kg I&O - last 24 hours: Intake & Output 06/15/16 06/15/16 06/16/16 14:59 22:59 06:59 Intake Total 1420 1000 800 Output Total 1150 1075 1200 Balance 270 -75 -400 Lab Results last 24 hrs: Laboratory Results - last 24 hr 06/16/16 06/16/16 Range/Units 04:55 04:55 WBC 7.48 (3.98-10.04) K/mm3 RBC 3.08 L (3.98-5.22) M/mm3 Hgb 8.7 L (11.2-15.7) gm/L Hct 26.4 L (34.1-44.9) % MCV 85.7 (79.4-94.8) fl MCH 28.2 (25.6-32.2) pg MCHC 33.0 (32.2-35.5) g/dl RDW Std Deviation 43.2 (36.4-46.3) fL Plt Count 171 L (182-369) K/mm3 MPV 9.6 (9.4-12.3) fl Sodium 141 (136-145) mEq/L Potassium 3.2 L (3.5-5.1) mEq/L Chloride 107 (98-107) mEq/L Carbon Dioxide 27 (21-32) mEq/L Anion Gap 10.2 (5-15) BUN 5 L (7-18) mg/dL Creatinine 0.8 (0.55-1.02) mg/dL Est Cr Clr Drug Dosing 85.71 mL/min Estimated GFR (MDRD) > 60 (>60) mL/min BUN/Creatinine Ratio 6.3 L (14-18) Glucose 106 (74-106) mg/dL Calcium 7.4 L (8.5-10.1) mg/dL Med Orders - Current: Current Medications Docusate Sodium (Colace) 100 mg PO BID [facility] Last Admin: 06/15/16 21:02 Dose: 100 mg Fluoxetine HCl (Prozac) 40 mg PO DAILY [facility] Last Admin: 06/15/16 08:51 Dose: 40 mg Hydromorphone HCl (Dilaudid) 0.5 mg IVPUSH Q2H PRN PRN Reason: Pain Ibuprofen (Motrin) 600 mg PO Q6H PRN PRN Reason: Pain Ondansetron HCl (Zofran) 4 mg IVPUSH Q4H PRN PRN Reason: Nausea/Vomiting Oxycodone/Acetaminophen (Percocet 325-5 Mg) 2 tab PO Q4H PRN PRN Reason: Pain (moderate 4-6) Last Admin: 06/16/16 02:21 Dose: 2 tab Simethicone (Simethicone) 80 mg PO Q4H PRN PRN Reason: Gas Last Admin: 06/15/16 08:52 Dose: 80 mg Discontinued Medications Cefazolin Sodium (Ancef) Confirm Administered Dose 1 gm .ROUTE .STK-MED ONE Stop: 06/14/16 07:20 Cefazolin Sodium (Ancef) Confirm Administered Dose 1 gm .ROUTE .STK-MED ONE Stop: 06/14/16 07:20 Cefazolin Sodium (Ancef) Confirm Administered Dose 1 gm .ROUTE .STK-MED ONE Stop: 06/14/16 14:18 Cefazolin Sodium (Ancef) Confirm Administered Dose 1 gm .ROUTE .STK-MED ONE Stop: 06/14/16 14:18 Diphenhydramine HCl (Benadryl) 25 mg IVPUSH Q6H PRN PRN Reason: pruritis Stop: 06/14/16 18:00 Ephedrine Sulfate (Ephedrine In Ns) Confirm Administered Dose 25 mg .ROUTE .STK- MED ONE Stop: 06/14/16 12:22 Ephedrine Sulfate (Ephedrine In Ns) Confirm Administered Dose 25 mg .ROUTE .STK- MED ONE Stop: 06/14/16 13:41 Fentanyl (Sublimaze) Confirm Administered Dose 250 mcg .ROUTE .STK-MED ONE Stop: 06/14/16 07:17 Fentanyl (Sublimaze) 50 mcg IVPUSH Q5M PRN PRN Reason: Pain Stop: 06/14/16 12:06 Last Admin: 06/14/16 15:36 Dose: 50 mcg Fentanyl (Sublimaze) Confirm Administered Dose 250 mcg .ROUTE .STK-MED ONE Stop: 06/14/16 12:16 Fentanyl (Sublimaze) Confirm Administered Dose 250 mcg .ROUTE .STK-MED ONE Stop: 06/14/16 13:33 Fentanyl (Sublimaze) Confirm Administered Dose 100 mcg .ROUTE .STK-MED ONE Stop: 06/14/16 14:47 Last Admin: 06/14/16 16:49 Dose: Not Given Fentanyl (Sublimaze) 50 mcg IVPUSH ONETIME [facility] Stop: 06/14/16 18:00 Hydromorphone HCl (Dilaudid) 0.5 mg IVPUSH Q15M PRN PRN Reason: severe pain Stop: 06/14/16 11:06 Last Admin: 06/14/16 15:43 Dose: 0.5 mg Hydromorphone HCl (Dilaudid) Confirm Administered Dose 1 mg .ROUTE .STK-MED ONE Stop: 06/14/16 11:05 Hydromorphone HCl (Dilaudid) Confirm Administered Dose 0.5 mg .ROUTE .STK-MED ONE Stop: 06/14/16 15:18 Last Admin: 06/14/16 15:26 Dose: 0.5 mg Hydromorphone HCl (Dilaudid) 0.5 mg IM ONETIME ONE Stop: 06/14/16 15:33 Last Admin: 06/14/16 16:49 Dose: Not Given Lactated Ringer's (Ringers, Lactated) 1,000 mls @ 125 mls/hr IV ASDIRECTED [facility] Stop: 06/14/16 23:00 Last Admin: 06/14/16 15:05 Dose: 125 mls/hr Lactated Ringer's (Ringers, Lactated) Confirm Administered Dose 1,000 mls @ as directed .ROUTE .STK-MED ONE Stop: 06/14/16 10:44 Hetastarch/Sodium Chloride (Hetastarch 6% In Normal Saline) Confirm Administered Dose 500 mls @ as directed .ROUTE .STK-MED ONE Stop: 06/14/16 12:34 Lactated Ringer's (Ringers, Lactated) Confirm Administered Dose 1,000 mls @ as directed .ROUTE .STK-MED ONE Stop: 06/14/16 12:35 Lactated Ringer's (Ringers, Lactated) Confirm Administered Dose 1,000 mls @ as directed .ROUTE .STK-MED ONE Stop: 06/14/16 13:15 Sodium Chloride (Normal Saline) 1,000 mls @ 100 mls/hr IV ASDIRECTED [facility] Last Admin: 06/15/16 04:14 Dose: 100 mls/hr Ketorolac Tromethamine (Toradol) Confirm Administered Dose 30 mg .ROUTE .STK- MED ONE Stop: 06/14/16 10:49 Ketorolac Tromethamine (Toradol) 30 mg IVPUSH ONETIME ONE Stop: 06/14/16 18:18 Last Admin: 06/14/16 18:26 Dose: 30 mg Ketorolac Tromethamine (Toradol) 30 mg IM ONETIME PRN PRN Reason: Pain Last Admin: 06/15/16 04:11 Dose: 30 mg Ketorolac Tromethamine (Toradol) 30 mg IVPUSH Q6H [facility] Stop: 06/15/16 16:31 Last Admin: 06/15/16 16:23 Dose: 30 mg Lidocaine/Epinephrine (Xylocaine 1% With Epinephrine 1:100,000) Confirm Administered Dose 20 ml .ROUTE .ST-MED ONE Stop: 06/14/16 08:14 Last Admin: 06/14/16 09:55 Dose: 1 ml Lidocaine/Sodium Bicarbonate (Buffered Lidocaine 1% In Ns 8.4%) 0.25 ml IV ONETIME PRN PRN Reason: Prior to IV Start Stop: 06/14/16 23:00 Meperidine HCl (Demerol) 12.5 mg IVPUSH ASDIRECTED PRN PRN Reason: Shivering Stop: 06/15/16 11:51 Last Admin: 06/14/16 14:59 Dose: 12.5 mg Methylene Blue (Methylene Blue 1%) Confirm Administered Dose 2 ml .ROUTE .STK- MED ONE Stop: 06/14/16 12:30 Midazolam HCl (Versed 1 Mg/Ml) Confirm Administered Dose 2 mg .ROUTE .STK-MED ONE Stop: 06/14/16 07:18 Morphine Sulfate (Morphine) 2 mg IVPUSH Q2H PRN PRN Reason: Pain (severe 7-10) Last Admin: 06/15/16 02:25 Dose: 2 mg Ondansetron HCl (Zofran) Confirm Administered Dose 4 mg .ROUTE .STK-MED ONE Stop: 06/14/16 10:49 Ondansetron HCl (Zofran) 4 mg IVPUSH ONETIME PRN PRN Reason: Nausea/Vomiting Stop: 06/14/16 18:00 Last Admin: 06/14/16 16:59 Dose: 4 mg Pneumococcal Polyvalent Vaccine (Pneumovax 23) 0.5 ml IM .ONCE ONE Stop: 06/15/16 08:46 Propofol (Diprivan 20 Ml) Confirm Administered Dose 200 mg .ROUTE .STK-MED ONE Stop: 06/14/16 07:15 Rocuronium Elma (Zemuron) Confirm Administered Dose 50 mg .ROUTE .STK-MED ONE Stop: 06/14/16 07:19 Rocuronium Elma (Zemuron) Confirm Administered Dose 50 mg .ROUTE .STK-MED ONE Stop: 06/14/16 10:43 Sodium Chloride (Saline Flush) 10 ml FLUSH ASDIRECTED PRN PRN Reason: Keep Vein Open Stop: 06/14/16 23:59 Sodium Chloride (Normal Saline) Confirm Administered Dose 50 ml .ROUTE .STK-MED ONE Stop: 06/14/16 08:14 Last Admin: 06/14/16 09:55 Dose: 3 ml - Exam Wound/Incisions: healing well, no drainage General: alert, oriented, cooperative Lungs: Clear to auscultation, Normal respiratory effort Cardiovascular: Regular Rate, Regular Rhythm Abdomen: soft, no distension, tenderness (appropriate post op ). No: rebound, guarding Extremities: edema Skin: warm, dry, intact - Problem List & Annotations (1) Menorrhagia SNOMED Code(s): 284750020 Code(s): N92.0 - EXCESSIVE AND FREQUENT MENSTRUATION WITH REGULAR CYCLE Status: Acute Qualifiers: Menorrahagia type: with regular cycle Qualified Code(s): N92.0 - Excessive and frequent menstruation with regular cycle (2) S/P hysterectomy SNOMED Code(s): 216029448, 643452281 Code(s): Z90.710 - ACQUIRED ABSENCE OF BOTH CERVIX AND UTERUS Status: Acute (3) S/P exploratory laparotomy SNOMED Code(s): 120532365, 04979769, 076960131 Code(s): Z98.890 - OTHER SPECIFIED POSTPROCEDURAL STATES Status: Acute (4) Postoperative anemia SNOMED Code(s): 778745189 Code(s): D64.9 - ANEMIA, UNSPECIFIED Status: Acute - Problem List Review Problem List Initiated/Reviewed/Updated: Yes - My Orders Last 24 Hours: Active Orders 24 hr Category Date Time Status RT Incentive Spirometry [RC] ASDIRECTED Care 06/15/16 09:07 Active FLUoxetine [PROzac] Med 06/15/16 09:00 Active 40 mg PO DAILY HYDROmorphone [Dilaudid] Med 06/15/16 17:56 Active 0.5 mg IVPUSH Q2H PRN Ibuprofen [Motrin] Med 06/15/16 17:56 Active 600 mg PO Q6H PRN Simethicone Med 06/15/16 06:59 Active 80 mg PO Q4H PRN Medication Orders Docusate Sodium (Colace) 100 mg PO BID [facility] Last Admin: 06/15/16 21:02 Dose: 100 mg Admin: 06/15/16 08:52 Dose: 100 mg Admin: 06/14/16 20:18 Dose: 100 mg Fluoxetine HCl (Prozac) 40 mg PO DAILY [facility] Last Admin: 06/15/16 08:51 Dose: 40 mg Hydromorphone HCl (Dilaudid) 0.5 mg IVPUSH Q2H PRN PRN Reason: Pain Ibuprofen (Motrin) 600 mg PO Q6H PRN PRN Reason: Pain Ondansetron HCl (Zofran) 4 mg IVPUSH Q4H PRN PRN Reason: Nausea/Vomiting Oxycodone/Acetaminophen (Percocet 325-5 Mg) 2 tab PO Q4H PRN PRN Reason: Pain (moderate 4-6) Last Admin: 06/16/16 02:21 Dose: 2 tab Admin: 06/15/16 21:02 Dose: 2 tab Admin: 06/15/16 16:25 Dose: 2 tab Admin: 06/15/16 12:35 Dose: 2 tab Admin: 06/15/16 07:06 Dose: 2 tab Simethicone (Simethicone) 80 mg PO Q4H PRN PRN Reason: Gas Last Admin: 06/15/16 08:52 Dose: 80 mg - Assessment Assessment (Free Text/Narrative):: 35 y/o POD#2 from TLH with then conversion to ex lap due to bleeding from 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 - Plan Plan (Free Text/Narrative):: * Patient overall doing well. Hb yesterday AM 9.1 and now 8.7. This is felt to be stable. Excellent UOP. VS appropriate. Pain has been relatively well controlled. She does desire discharge today. Will do this with follow up in clinic next week. She will otherwise call with any concerns prior to that time.
--- NOTE | 2016-06-16 08:09 | PCM.DCSUM1 ---
Discharge Summary - Discharge Data Discharge Date: 06/16/16 Discharge Disposition: Home, Self-Care 01 Condition: Good - Discharge Diagnosis/Problem(s) (1) Menorrhagia SNOMED Code(s): 771090365 ICD Code: N92.0 - EXCESSIVE AND FREQUENT MENSTRUATION WITH REGULAR CYCLE Status: Acute Qualifiers: Menorrahagia type: with regular cycle Qualified Code(s): N92.0 - Excessive and frequent menstruation with regular cycle (2) S/P hysterectomy SNOMED Code(s): 736004073, 048055455 ICD Code: Z90.710 - ACQUIRED ABSENCE OF BOTH CERVIX AND UTERUS Status: Acute (3) S/P exploratory laparotomy SNOMED Code(s): 129608279, 69797167, 092824670 ICD Code: Z98.890 - OTHER SPECIFIED POSTPROCEDURAL STATES Status: Acute (4) Postoperative anemia SNOMED Code(s): 200374339 ICD Code: D64.9 - ANEMIA, UNSPECIFIED Status: Acute - Patient Summary/Data Operative Procedure(s) Performed: Total laparoscopic hysterectomy. Exploratory laparotomy due to bleeding vessel, salpingectomy. Cystoscopy Complications: Intra-operative bleeding requiring 2 units PRBCs transfusion Consults: None Recommended Follow-up Testing/Procedures: Follow up in [address] Starr Hospital Course: 35 y/o woman admitted for planned hysterectomy. This was done via laparoscopic approach. Once procedure completed a bleeding vessel was noted at patient's right vaginal cuff, thought to be a branch of the uterine artery. This could not be controlled laparoscopically and so exploratory laparotomy then performed. See operative note for full details. She did receive 2 units PRBCs in the OR. Post operatively she did well. Blood counts found to be stable and she was meeting all goals by POD#2 and requested discharge home. This was felt to be reasonable and so done. - Patient Instructions Diet: Regular Diet as Tolerated Activity: No Lifting Over 10 Pounds Activity, Other: [place] Rest for 6 weeks Driving: Do Not Drive (While taking narcotics ) Showering/Bathing: May Shower, No Tub Bathing/Swimming Wound/Incision Care: Keep Operative Site/Wound Site Clean and Dry Notify Provider of: Fever, Increased Pain, Swelling and Redness, Drainage, Nausea and/or Vomiting - Discharge Plan Prescriptions/Med Rec: Acetaminophen/oxyCODONE [Percocet 325-5 MG] 2 tab PO Q4H PRN #30 tablet PRN Reason: Pain Home Medications: Home Meds Chrom Bee/Brindal Gracia [Garcinia Cambogia Tablet] 2 tab PO DAILY 06/13/16 [ History] FLUoxetine [PROzac] 40 mg PO DAILY 06/13/16 [History] Fish Oil/[place]-3 Fatty Acids [Fish Oil 1,000 MG] 1,000 mg PO DAILY 06/13/16 [ History] Fluticasone Propionate [Flonase] 1 spray NASBOTH BID PRN 06/13/16 [History] Zolpidem [Ambien] 10 mg PO BEDTIME PRN 06/13/16 [History] Acetaminophen/oxyCODONE [Percocet 325-5 MG] 2 tab PO Q4H PRN #30 tablet [Rx] Docusate Sodium [Colace] 100 mg PO BID cap 06/16/16 [Rx] Patient Handouts: Hysterectomy Information, [id number], Menorrhagia, Easy-to- Read Referrals: Agnes Starr MD [Primary Care Provider] - 06/21/16 10:45 am (Please follow up with Dr. Starr on June 21 at 1045.) - Discharge Summary/Plan Comment DC Time >30 min.: No - Patient Data Vitals - Most Recent: Last Vital Signs Temp 36.7 C 06/16/16 04:00 Pulse 91 06/16/16 04:00 Resp 18 06/16/16 04:00 BP 101/53 L 06/16/16 04:00 Pulse Ox 90 L 06/16/16 04:00 Orthostatic Blood Pressure [ 108/67 Sitting] Weight - Most Recent: 86.001 kg I&O - Last 24 hours: Intake & Output 06/15/16 06/16/16 06/16/16 22:59 06:59 14:59 Intake Total 1000 800 Output Total 1075 1200 Balance -75 -400 Lab Results - Last 24 hrs: Laboratory Results - last 24 hr 06/16/16 06/16/16 Range/Units 04:55 04:55 WBC 7.48 (3.98-10.04) K/mm3 RBC 3.08 L (3.98-5.22) M/mm3 Hgb 8.7 L (11.2-15.7) gm/L Hct 26.4 L (34.1-44.9) % MCV 85.7 (79.4-94.8) fl MCH 28.2 (25.6-32.2) pg MCHC 33.0 (32.2-35.5) g/dl RDW Std Deviation 43.2 (36.4-46.3) fL Plt Count 171 L (182-369) K/mm3 MPV 9.6 (9.4-12.3) fl Sodium 141 (136-145) mEq/L Potassium 3.2 L (3.5-5.1) mEq/L Chloride 107 (98-107) mEq/L Carbon Dioxide 27 (21-32) mEq/L Anion Gap 10.2 (5-15) BUN 5 L (7-18) mg/dL Creatinine 0.8 (0.55-1.02) mg/dL Est Cr Clr Drug Dosing 85.71 mL/min Estimated GFR (MDRD) > 60 (>60) mL/min BUN/Creatinine Ratio 6.3 L (14-18) Glucose 106 (74-106) mg/dL Calcium 7.4 L (8.5-10.1) mg/dL Med Orders - Current: Current Medications Docusate Sodium (Colace) 100 mg PO BID [facility] Last Admin: 06/15/16 21:02 Dose: 100 mg Fluoxetine HCl (Prozac) 40 mg PO DAILY [facility] Last Admin: 06/15/16 08:51 Dose: 40 mg Hydromorphone HCl (Dilaudid) 0.5 mg IVPUSH Q2H PRN PRN Reason: Pain Ibuprofen (Motrin) 600 mg PO Q6H PRN PRN Reason: Pain Ondansetron HCl (Zofran) 4 mg IVPUSH Q4H PRN PRN Reason: Nausea/Vomiting Oxycodone/Acetaminophen (Percocet 325-5 Mg) 2 tab PO Q4H PRN PRN Reason: Pain (moderate 4-6) Last Admin: 06/16/16 02:21 Dose: 2 tab Simethicone (Simethicone) 80 mg PO Q4H PRN PRN Reason: Gas Last Admin: 06/15/16 08:52 Dose: 80 mg Discontinued Medications Cefazolin Sodium (Ancef) Confirm Administered Dose 1 gm .ROUTE .STK-MED ONE Stop: 06/14/16 07:20 Cefazolin Sodium (Ancef) Confirm Administered Dose 1 gm .ROUTE .STK-MED ONE Stop: 06/14/16 07:20 Cefazolin Sodium (Ancef) Confirm Administered Dose 1 gm .ROUTE .STK-MED ONE Stop: 06/14/16 14:18 Cefazolin Sodium (Ancef) Confirm Administered Dose 1 gm .ROUTE .STK-MED ONE Stop: 06/14/16 14:18 Diphenhydramine HCl (Benadryl) 25 mg IVPUSH Q6H PRN PRN Reason: pruritis Stop: 06/14/16 18:00 Ephedrine Sulfate (Ephedrine In Ns) Confirm Administered Dose 25 mg .ROUTE .STK- MED ONE Stop: 06/14/16 12:22 Ephedrine Sulfate (Ephedrine In Ns) Confirm Administered Dose 25 mg .ROUTE .STK- MED ONE Stop: 06/14/16 13:41 Fentanyl (Sublimaze) Confirm Administered Dose 250 mcg .ROUTE .STK-MED ONE Stop: 06/14/16 07:17 Fentanyl (Sublimaze) 50 mcg IVPUSH Q5M PRN PRN Reason: Pain Stop: 06/14/16 12:06 Last Admin: 06/14/16 15:36 Dose: 50 mcg Fentanyl (Sublimaze) Confirm Administered Dose 250 mcg .ROUTE .STK-MED ONE Stop: 06/14/16 12:16 Fentanyl (Sublimaze) Confirm Administered Dose 250 mcg .ROUTE .STK-MED ONE Stop: 06/14/16 13:33 Fentanyl (Sublimaze) Confirm Administered Dose 100 mcg .ROUTE .STK-MED ONE Stop: 06/14/16 14:47 Last Admin: 06/14/16 16:49 Dose: Not Given Fentanyl (Sublimaze) 50 mcg IVPUSH ONETIME [facility] Stop: 06/14/16 18:00 Hydromorphone HCl (Dilaudid) 0.5 mg IVPUSH Q15M PRN PRN Reason: severe pain Stop: 06/14/16 11:06 Last Admin: 06/14/16 15:43 Dose: 0.5 mg Hydromorphone HCl (Dilaudid) Confirm Administered Dose 1 mg .ROUTE .STK-MED ONE Stop: 06/14/16 11:05 Hydromorphone HCl (Dilaudid) Confirm Administered Dose 0.5 mg .ROUTE .[facility] ONE Stop: 06/14/16 15:18 Last Admin: 06/14/16 15:26 Dose: 0.5 mg Hydromorphone HCl (Dilaudid) 0.5 mg IM ONETIME ONE Stop: 06/14/16 15:33 Last Admin: 06/14/16 16:49 Dose: Not Given Lactated Ringer's (Ringers, Lactated) 1,000 mls @ 125 mls/hr IV ASDIRECTED [facility] Stop: 06/14/16 23:00 Last Admin: 06/14/16 15:05 Dose: 125 mls/hr Lactated Ringer's (Ringers, Lactated) Confirm Administered Dose 1,000 mls @ as directed .ROUTE .[facility] ONE Stop: 06/14/16 10:44 Hetastarch/Sodium Chloride (Hetastarch 6% In Normal Saline) Confirm Administered Dose 500 mls @ as directed .ROUTE .[facility] ONE Stop: 06/14/16 12:34 Lactated Ringer's (Ringers, Lactated) Confirm Administered Dose 1,000 mls @ as directed .ROUTE .[facility] ONE Stop: 06/14/16 12:35 Lactated Ringer's (Ringers, Lactated) Confirm Administered Dose 1,000 mls @ as directed .ROUTE .[facility] ONE Stop: 06/14/16 13:15 Sodium Chloride (Normal Saline) 1,000 mls @ 100 mls/hr IV ASDIRECTED [facility] Last Admin: 06/15/16 04:14 Dose: 100 mls/hr Ketorolac Tromethamine (Toradol) Confirm Administered Dose 30 mg .ROUTE .STK- MED ONE Stop: 06/14/16 10:49 Ketorolac Tromethamine (Toradol) 30 mg IVPUSH ONETIME ONE Stop: 06/14/16 18:18 Last Admin: 06/14/16 18:26 Dose: 30 mg Ketorolac Tromethamine (Toradol) 30 mg IM ONETIME PRN PRN Reason: Pain Last Admin: 06/15/16 04:11 Dose: 30 mg Ketorolac Tromethamine (Toradol) 30 mg IVPUSH Q6H [facility] Stop: 06/15/16 16:31 Last Admin: 06/15/16 16:23 Dose: 30 mg Lidocaine/Epinephrine (Xylocaine 1% With Epinephrine 1:100,000) Confirm Administered Dose 20 ml .ROUTE .STK-MED ONE Stop: 06/14/16 08:14 Last Admin: 06/14/16 09:55 Dose: 1 ml Lidocaine/Sodium Bicarbonate (Buffered Lidocaine 1% In Ns 8.4%) 0.25 ml IV ONETIME PRN PRN Reason: Prior to IV Start Stop: 06/14/16 23:00 Meperidine HCl (Demerol) 12.5 mg IVPUSH ASDIRECTED PRN PRN Reason: Shivering Stop: 06/15/16 11:51 Last Admin: 06/14/16 14:59 Dose: 12.5 mg Methylene Blue (Methylene Blue 1%) Confirm Administered Dose 2 ml .ROUTE .STK- MED ONE Stop: 06/14/16 12:30 Midazolam HCl (Versed 1 Mg/Ml) Confirm Administered Dose 2 mg .ROUTE .STK-MED ONE Stop: 06/14/16 07:18 Morphine Sulfate (Morphine) 2 mg IVPUSH Q2H PRN PRN Reason: Pain (severe 7-10) Last Admin: 06/15/16 02:25 Dose: 2 mg Ondansetron HCl (Zofran) Confirm Administered Dose 4 mg .ROUTE .STK-MED ONE Stop: 06/14/16 10:49 Ondansetron HCl (Zofran) 4 mg IVPUSH ONETIME PRN PRN Reason: Nausea/Vomiting Stop: 06/14/16 18:00 Last Admin: 06/14/16 16:59 Dose: 4 mg Pneumococcal Polyvalent Vaccine (Pneumovax 23) 0.5 ml IM .ONCE ONE Stop: 06/15/16 08:46 Propofol (Diprivan 20 Ml) Confirm Administered Dose 200 mg .ROUTE .STK-MED ONE Stop: 06/14/16 07:15 Rocuronium Mark (Zemuron) Confirm Administered Dose 50 mg .ROUTE .STK-MED ONE Stop: 06/14/16 07:19 Rocuronium Mark (Zemuron) Confirm Administered Dose 50 mg .ROUTE .STK-MED ONE Stop: 06/14/16 10:43 Sodium Chloride (Saline Flush) 10 ml FLUSH ASDIRECTED PRN PRN Reason: Keep Vein Open Stop: 06/14/16 23:59 Sodium Chloride (Normal Saline) Confirm Administered Dose 50 ml .ROUTE .[facility] ONE Stop: 06/14/16 08:14 Last Admin: 06/14/16 09:55 Dose: 3 ml *Q Meaningful Use (DIS) - VTE *Q VTE Criteria *Q: - Stroke *Q Stroke Criteria *Q: - AMI *Q AMI Criteria *Q:
[2016-06-16 08:11] VITALS: BP 113/56
[2016-06-16] MEDS: Docusate Sodium 100 MG Cap PO SCH (08:55)
[2016-06-16] MEDS: FLUoxetine 20 MG Cap PO SCH (08:55)
== END 2016-06-16 09:30 | disposition home or self-care (01) | DRG 743 ==
LOC: JD.SDS 07:46 → JD.ICU 16:05 → JD.MS 06-15 18:10
PROVIDERS: ADMIT Obstetrics & Gynecology; ATTEND Obstetrics & Gynecology
PROC: 0UT90ZZ Resection of Uterus, Open Approach (ICD-10-PCS; principal; 2016-06-14)
PROC: 0UJD4ZZ Inspection of Uterus and Cervix, Percutaneous Endoscopic Approach (ICD-10-PCS; 2016-06-14)
PROC: 0UT70ZZ Resection of Bilateral Fallopian Tubes, Open Approach (ICD-10-PCS; 2016-06-14)
DX: N92.0 Excessive and frequent menstruation with regular cycle (principal); D64.9 Anemia, unspecified; F17.210 Nicotine dependence, cigarettes, uncomplicated
CPT/HCPCS: 00944; 36415; 36430; 80048; 81025; 83735; 85025; 85027; 85610; 85730; 86850; 86900; 86901; 86922; A9270-GY; J0690; J1170; J1885; J2175; J2250; J2270; J2405; J2704; J3010; J7040; J7050; J7120; P9016; Q9968

== ENCOUNTER 2020-05-05 11:31 | Emergency (ER) | payer OTHER ==
[2020-05-05 11:41] VITALS: BP 128/83; PULSE 99
[2020-05-05] MEDS ORDERED: predniSONE 10 MG Tab PO ONE (11:48)
[2020-05-05] MEDS ORDERED: Famotidine 20 MG Tab PO ONE (11:48)
--- NOTE | 2020-05-05 11:57 | EDM.PDOC ---
ED HPI GENERAL MEDICAL PROBLEM - General Chief Complaint: Allergic Reaction Stated Complaint: TONGUE SWELLING Time Seen by Provider: 05/05/20 11:38 Source of Information: Reports: Patient, RN Notes Reviewed History Limitations: Reports: No Limitations - History of Present Illness INITIAL COMMENTS - FREE TEXT/NARRATIVE: Patient is a 39-year-old female presenting to the emergency department with complaints of intermittent tongue swelling and throat irritation since Sunday. She states the symptoms initially began with an irritated throat on Sunday. Sunday, the throat irritation continued and she did have some mild swelling in her tongue as well. [facility] she thought maybe she was developing strep throat. They did a strep and a Covid test on this was found to be negative. Advised her to take Benadryl for her tongue swelling. She states she has been using Benadryl 50 mg and it does help, however when the Benadryl wears off the swelling returns. This morning, upon waking her son with tongue was significantly swollen. She took Benadryl 50 mg and it has essentially resolved. She started taking a madalyn weight loss of them approximately 1 week ago. She takes no other medications and has had no new food exposures or known allergies. She stopped taking the supplement yesterday. She denies any shortness of breath or feeling of swelling in her throat. She states it feels "irritated ". 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: , Other (See Below) 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 CONTROL OPERATOR History: heavy menstrual bleeding, dysmenorrhea Musculoskeletal History: Reports: None Neurological History: Reports: None Psychiatric History: Reports: None (pt has hx of anxiety, panic attacks) Endocrine/Metabolic History: Reports: None Hematologic History: Reports: None Immunologic History: Reports: None Oncologic (Cancer) History: Reports: None Dermatologic History: Reports: None - Infectious Disease History Infectious Disease History: Reports: None - Past Surgical History HEENT Surgical History: Reports: Adenoidectomy, LASIK, Tonsillectomy GI Surgical History: Reports: Cholecystectomy Female Surgical History: Reports: Section, Tubal Ligation Musculoskeletal Surgical History: Reports: Other (See Below) Other Musculoskeletal Surgeries/Procedures:: ankle fracture with surgery x 2 Social & Family History - Caffeine Use Caffeine Use: Reports: None - Recreational Drug Use Recreational Drug Use: No ED ROS ALLERGIC REACTION - Review of Systems Review Of Systems: See Below Constitutional: Reports: No Symptoms. Denies: Fever, Chills, Weakness HEENT: Reports: Throat Pain, Other (Tongue swelling) Respiratory: Reports: No Symptoms Cardiovascular: Reports: No Symptoms Endocrine: Reports: No Symptoms GI/Abdominal: Reports: No Symptoms : Reports: No Symptoms Musculoskeletal: Reports: No Symptoms Skin: Reports: No Symptoms Neurological: Reports: No Symptoms Psychiatric: Reports: No Symptoms Hematologic/Lymphatic: Reports: No Symptoms Immunologic: Reports: No Symptoms ED EXAM GENERAL NO PERIP PULSE - Physical Exam Exam: See Below General Appearance: Alert, WD/WN, No Apparent Distress Throat/Mouth: Normal Inspection, Normal Lips, Normal Teeth, Normal Oropharynx, Normal Voice Head: Atraumatic, Normocephalic Respiratory/Chest: No Respiratory Distress, Lungs Clear, Normal Breath Sounds, No Accessory Muscle Use, Chest Non-Tender Cardiovascular: Normal Peripheral Pulses, Regular Rate, Rhythm, No Edema, No Gallop, No JVD, No Murmur, No Rub Neurological: Alert, Oriented, CN II-XII Intact, Normal Cognition, Normal Gait, Normal Reflexes, No Motor/Sensory Deficits Psychiatric: Normal Affect, Normal Mood Skin Exam: Warm, Dry, Intact, Normal Color, No Rash Course - Vital Signs Last Recorded V/S: Last Vital Signs Temp 97.7 F 05/05/20 11:36 Pulse 99 05/05/20 11:36 Resp 16 05/05/20 11:36 BP 128/83 05/05/20 11:36 Pulse Ox 100 05/05/20 11:36 - Orders/Labs/Meds Meds: Medications Discontinued Medications Generic Name Dose Route Start Last Admin Trade Name Freq PRN Reason Stop Dose Admin Famotidine 20 mg 05/05/20 11:48 Pepcid PO 05/05/20 11:49 ONETIME ONE Prednisone 40 mg 05/05/20 11:48 Prednisone PO 05/05/20 11:49 ONETIME ONE - Re-Assessments/Exams Free Text/Narrative Re-Assessment/Exam: Patient is a 39-year-old female presenting to the emergency department with complaints of intermittent tongue swelling and throat irritation since Sunday. She has been using Benadryl which she states does resolve the swelling, however when the Benadryl wears off it returns. She was checked for strep and Covid both of which were negative. She denies any shortness of breath or tightness in her throat. We will start her on a tapering dose of prednisone as well as Pepcid. Recommend continued use of Benadryl. Educated that she should stop taking the madalyn weight loss supplement. Discussed return precautions. Discharge instructions as document. Departure - Departure Time of Disposition: 11:59 Disposition: Home, Self-Care 01 Condition: Good Clinical Impression: Mild tongue swelling - Discharge Information *PRESCRIPTION DRUG MONITORING PROGRAM REVIEWED*: No *COPY OF PRESCRIPTION DRUG MONITORING REPORT IN PATIENT SOFIE: No Prescriptions: predniSONE [Prednisone] 20 mg PO ASDIRECTED #13 tablet Referrals: Livia Byrd, [employer] THE[employer] [Primary Care Provider] - Additional Instructions: You were seen in the emergency department today for intermittent tongue swelling and throat irritation since Sunday. As discussed, I recommend that you stop taking the medical weight loss supplement. You have been started on prednisone. First dose was given in ER. Remaining prescription has been sent to [facility] in [place] [facility]. Take this medication as prescribed. Also recommend taking Pepcid 20 mg daily for the next 10 days. You may continue to use Benadryl 50 mg every 4 hours as needed. If you experience any worsening of swelling, shortness of breath, or any other concerning symptoms, please return to the emergency department for reevaluation. Sepsis Event Note (ED) - Evaluation Sepsis Screening Result: No Definite Risk - Focused Exam Vital Signs: Vital Signs Temp Pulse Resp BP Pulse Ox 05/05/20 11:36 97.7 F 99 16 128/83 100
== END 2020-05-05 12:10 | disposition home or self-care (01) ==
LOC: JD.ED 11:31
DX: K14.8 Other diseases of tongue (principal)
CPT/HCPCS: 99283; A9270; J7512